=== PATIENT | female | born 1975 | race Caucasian/White ===

== ENCOUNTER 2016-03-21 20:25 | Emergency (ER) | payer MEDICARE, MEDICAID ==
[2016-03-21 20:45] VITALS: TEMP 98.3
[2016-03-21 20:46] VITALS: BMI 35.0
[2016-03-21] MEDS ORDERED: PREDNISONE 20 MG TAB PO ONE (20:58)
[2016-03-21] MEDS ORDERED: DIAZEPAM 5 MG TAB PO ONE (20:58)
[2016-03-21] MEDS ORDERED: HYDROmorphone 1 MG INJECTION IM ONE (20:58)
--- NOTE | 2016-03-21 21:01 | EDPRACDOC ---
- General Information Chief Complaint: Back Pain Stated Complaint: LT HIP PAIN NO INJURY Time Seen by Provider: 03/21/16 20:51 Information Source: Patient Mode Of Arrival: Car Home Medications: Home Medications Hydrochlorothiazide 25 mg PO DAILY 11/17/13 Losartan Potassium [Cozaar] 25 mg PO DAILY 11/17/13 Alprazolam [Xanax] 0.5 mg PO BID PRN 12/28/14 Esomeprazole Magnesium [Nexium] 40 mg PO DAILY 12/28/14 Oxycodone HCl [Roxicodone] 5 - 15 mg PO Q4-6H PRN 04/29/15 Oxymorphone HCl [Opana ER] 10 mg PO BID 07/21/15 Epinephrine [Epipen 2-Jayy] 0.3 mg IM DIR #2 pen.injctr 10/05/15 Duloxetine HCl [Cymbalta] 60 mg PO DAILY 01/16/16 Fluticasone/Vilanterol [Breo Ellipta 100-25 Mcg INH] 1 puff INH BID 01/16/16 Levocetirizine Dihydrochloride [Xyzal] 5 mg PO DAILY 01/16/16 Montelukast Sodium [Singulair] 10 mg PO DAILY 01/16/16 Potassium Chloride [Klor-Con M10] 10 meq PO DAILY 01/16/16 Trazodone HCl [Desyrel] 50 - 100 mg PO QHS 01/16/16 HydrOXYzine HCl (Antihistamine [Atarax] 25 mg PO Q6 PRN #30 tab 02/20/16 Ketoprofen 50 mg PO BID PRN #20 capsule 02/20/16 Diazepam [Valium] 5 mg PO TID #15 tablet 03/21/16 Prednisone [Deltasone, Orasone] 20 mg PO BID #12 tab 03/21/16 Allergies/Adverse Reactions: Allergies Allergy/AdvReac Type Severity Reaction Status Date / Time No Known Allergies Allergy Verified 02/20/16 10:36 - History of Present Illness Onset: SEVERAL DAYS HPI: PT PRESENTS WITH LEFT BUTTOCK THAT RADIATES DOWN HER LEG. DENIES LOSS OF BOWEL OR BLADDER. Pain Location: Reports: Lumbar Pain Radiates To: Reports: Thigh, Buttock, Calf, Foot Pain Caused By: Reports: Spontaneous Circumstances: Reports: Unknown Relevant History: Reports: Chronic back pain Currently ?: No Pain Severity: Reports: Moderate Pain Quality: Reports: Sharp, Stabbing Worsened By: Reports: Breathing, Movement, Twisting Associated Signs and Symptoms: Reports: None ED Past Medical History - History Reviewed Yes Nurses notes reviewed and agree except as marked - Patient Medical History Cardiac History: Reports: Hypertension Respiratory History: Reports: Asthma, COPD GI/ History: Reports: Gastroesophageal Reflux, Diverticulosis Psychological History: Denies: Depression Additional Past Medical History: CHRONIC BACK PAIN - Social Medical History Smoking Status: Heavy tobacco smoker (5 or more cigarettes/day or daily pipe/ cigar) EDM Review of Systems - Review of Systems ROS Negative Except as Marked: Yes All systems reviewed and were negative except as marked - Physical Exam Constitutional: Alert (PT APPEARS UNCOMFORTABLE) Oriented to: Time, Person, Place Last recorded Vital Signs: Last Vital Signs Temp 98.3 F 03/21/16 20:45 Pulse 106 03/21/16 20:45 Resp 18 03/21/16 20:45 BP 158/103 H 03/21/16 20:45 Pulse Ox 96 03/21/16 20:45 Oxygen Pulse Oxygen Saturation 96 O2 Device Oxygen Flow Rate Fraction of Inspired Oxygen ( FIO2) - HEENT Head: Normal ( normocephalic) Eye Exam: Normal (PERRL, EOMI, Sclera white) Oropharynx: Normal (Pharynx:Moist without exudate,Gums-no swelling) Nose: No Symptoms Reported (septum midline) Neck: Normal (FROM, trachea at midline) - Respiratory/Cardiovascular Respiratory: Normal - CTA (BBS clear to auscultation without adventitious sounds ) Cardiovascular: Tachycardia - GI Auscultation: Normal (NABS) Palpation: Normal (Soft,No rebound or guarding, non distended) Tenderness: Non tender Hudson's Sign: Negative Rectal Exam: Deferred - Musculoskeletal Back: Normal (Non-Tender) Extremities: Normal (Normal tone, Pulses 2+ No cyanosis or edema, FROM) - Integumentary Skin: Normal, Warm, Dry Lymphatics: Normal (no adenopathy) - Neurologic Memory Impaired: Normal Motor Function: Normal (Normal tone, Pulses 2+ No cyanosis or edema, FROM) Cranial Nerve: Normal (CN II-X11 intact sensation, strength 5/5) Cerebellar: Normal Mood Description: Normal Perception: Normal ED Back Exam - Neurologic Motor Deficit: None Reflexes: Normal - Musculoskeletal Cervical: Normal Thoracic: Normal Lumbar: Normal Midline: Normal Paraspinous: Tender Straight Leg Raise: Positive Pelvis: Normal - Differential Diagnosis Musculoskeletal pain Decision Time to Discharge: 21:03 - Departure Disposition: Home Condition: Stable Final Diagnosis: Sciatica Qualifiers: Laterality: left Qualified Code(s): M54.32 - Sciatica, left side Instructions: Sciatica (ED), Back Exercises (ED) Education/Counseling Given To: Patient Education/Counseling Given Regarding: Diagnosis, Treatment, Prognosis, Follow Up Referrals: Davis Mata PA [Primary Care Provider] - One Week Prescriptions: Diazepam [Valium] 5 mg PO TID #15 tablet Prednisone [Deltasone, Orasone] 20 mg PO BID #12 tab Additional Instructions: ICE OR HEAT TO THE AREA ~ WHICHEVER FEELS BETTER. FOLLOW UP WITH PCP NEXT WEEK. RETURN TO THE ED FOR WORSENING SYMPTOMS OR CONCERNS
[2016-03-21 21:48] VITALS: BP 146/92; PULSE 101
== END 2016-03-21 21:15 | disposition home or self-care (01) ==
LOC: EDMC 20:25
DX: M54.32 Sciatica, left side (principal); I10 Essential (primary) hypertension; K21.9 Gastro-esophageal reflux disease without esophagitis; J44.9 Chronic obstructive pulmonary disease, unspecified; J45.909 Unspecified asthma, uncomplicated; Z79.899 Other long term (current) drug therapy; F17.200 Nicotine dependence, unspecified, uncomplicated
CPT/HCPCS: 96372; 99283; A9270; J1170; J3490

== ENCOUNTER 2016-03-30 20:48 | Emergency (ER) | payer MEDICARE, MEDICAID ==
[2016-03-30 20:59] VITALS: BMI 34.9
[2016-03-30 21:11] LABS: AUTOMATED BASOPHIL 0.7 % (0-2); AUTOMATED EOSINOPHIL 0.7 % (0-5); AUTOMATED LYMPH 25.1 % (17-44); AUTOMATED MONOCYTE 6.9 % (3-10); AUTOMATED NEUTROPHIL 66.6 % (45-76); MPV 8.3 fL (7.4-10.4)
[2016-03-30 21:25] LABS: PARTIAL THROMB. TIME 24.4 SEC (22-35); PT-INR 0.9
[2016-03-30 21:31] LABS: BLOOD UREA NITROGEN 17 MG/DL (7-17); CALCIUM 8.9 MG/DL (8.4-10.2); CALCULATED OSMOLALITY 272 MOs/Kg (270-290); CHLORIDE 105 mEq/L (98-107); GLUCOSE 80 MG/DL (70-99); SODIUM LEVEL 141 mEq/L (137-146); TOTAL PROTEIN 7.8 G/DL (6.3-8.2)
--- NOTE | 2016-03-30 22:19 | EDPRACDOC ---
- General Information Chief Complaint: Chest Pain Stated Complaint: CHEST PAIN Time Seen by Provider: 03/30/16 22:10 Information Source: Patient Mode of Arrival: Car Home Medications: Home Medications Hydrochlorothiazide 25 mg PO DAILY 11/17/13 Losartan Potassium [Cozaar] 25 mg PO DAILY 11/17/13 Alprazolam [Xanax] 0.5 mg PO BID PRN 12/28/14 Esomeprazole Magnesium [Nexium] 40 mg PO DAILY 12/28/14 Oxycodone HCl [Roxicodone] 5 mg PO QID PRN 04/29/15 Oxymorphone HCl [Opana ER] 10 mg PO BID 07/21/15 Epinephrine [Epipen 2-Jayy] 0.3 mg IM DIR #2 pen.injctr 10/05/15 Duloxetine HCl [Cymbalta] 60 mg PO DAILY 01/16/16 Fluticasone/Vilanterol [Breo Ellipta 100-25 Mcg INH] 1 puff INH BID 01/16/16 Levocetirizine Dihydrochloride [Xyzal] 5 mg PO DAILY 01/16/16 Montelukast Sodium [Singulair] 10 mg PO DAILY 01/16/16 Potassium Chloride [Klor-Con M10] 10 meq PO DAILY 01/16/16 Trazodone HCl [Desyrel] 50 - 100 mg PO QHS 01/16/16 Aspirin [Ecotrin] 81 mg PO DAILY #30 tablet. 03/30/16 Metoprolol Tartrate 25 mg PO BID #60 tablet 03/30/16 Tizanidine HCl 4 mg PO TID 03/30/16 Allergies/Adverse Reactions: Allergies Allergy/AdvReac Type Severity Reaction Status Date / Time No Known Allergies Allergy Verified 03/21/16 21:42 - History of Present Illness Onset: 2 hours Chest Pain Location: Reports: Left Chest Pain Radiation: Reports: None Symptoms Occur: Reports: Suddenly, At Rest. Denies: With light exertion, With heavy exertion Cardiac Risk Factors: Denies: Smoker, Family History Cardiac History of: Reports: Similar Pain in Past, Stress Test. Denies: Cardiac Cath PE Risk Factors: Reports: None Medications within 24 Hours: Reports: Nitro Prehospital Care: Reports: [facility] NTG (PT OWN) Pain Came On: Reports: Suddenly Pain Status: Resolved Pain Description: Reports: Sharp, Stabbing, Other (LASTED APPROX 30 MIN, RESOLVED WITH NTG) Pain Worsens With: Reports: Nothing Pain Improves With: Reports: Nitroglycerin Associated Signs and Symptoms: Reports: SOB (HURT TO TAKE DEEP BREATH). Denies : Palpitations, Diaphoretic, Abdominal Pain, Nausea, Vomiting, Calf Pain or Swelling, Chest Rash ED Past Medical History - History Reviewed Yes Nurses notes reviewed and agree except as marked - Patient Medical History Cardiac History: Reports: Hypertension Respiratory History: Reports: Asthma, COPD GI/ History: Reports: Gastroesophageal Reflux, Diverticulosis Psychological History: Reports: Anxiety. Denies: Depression Systemic History: Denies: Cancer Additional Past Medical History: CHRONIC BACK PAIN Surgical History: Denies: Hysterectomy - Social Medical History Smoking Status: Former smoker ETOH: None Substance Abuse: None Lives With: Dad, Family EDM Review of Systems - Review of Systems ROS Negative Except as Marked: Yes All systems reviewed and were negative except as marked - Physical Exam Constitutional: Alert (Awake), No apparent distress Oriented to: Time, Person, Place Last recorded Vital Signs: Last Vital Signs Temp 97.4 F L 03/30/16 20:55 Pulse 101 03/30/16 20:55 Resp 20 03/30/16 20:55 BP 163/90 03/30/16 20:55 Pulse Ox 98 03/30/16 20:55 Oxygen Pulse Oxygen Saturation 98 O2 Device Room Air Oxygen Flow Rate Fraction of Inspired Oxygen ( FIO2) - HEENT Head: Normal ( normocephalic) Eye Exam: Normal (PERRL, EOMI, Sclera white) Oropharynx: Normal (Pharynx:Moist without exudate,Gums-no swelling) Tympanic Membrane: Normal ENT EAC: Normal TMJ: Normal Nose: No Symptoms Reported (septum midline) Neck: Normal (FROM, trachea at midline) - Respiratory/Cardiovascular Respiratory: Normal - CTA (BBS clear to auscultation without adventitious sounds ) Cardiovascular: Normal (RRR without murmur, gallop or rub) - GI Auscultation: Normal (NABS) Palpation: Normal (Soft,No rebound or guarding, non distended) Tenderness: Non tender Hudson's Sign: Negative - Musculoskeletal Back: Normal (Non-Tender) Extremities: Normal (Normal tone, Pulses 2+ No cyanosis or edema, FROM) - Integumentary Skin: Normal, Warm, Dry Lymphatics: Normal (no adenopathy) - Neurologic Memory Impaired: Normal Motor Function: Normal (Normal tone, Pulses 2+ No cyanosis or edema, FROM) Cranial Nerve: Normal (CN II-X11 intact sensation, strength 5/5) Cerebellar: Normal Mood Description: Normal Perception: Normal ED Chest Pain Exam - Respiratory/Cardiovascular Respiratory: Normal - CTA (clear to auscultation without adventitious sounds) Cardiovascular/Chest: Normal (RRR without murmur, gallop or rub) Radial Pulse: Normal Femoral Pulse: Normal Pedal Pulse: Normal Carotid Arteries: Normal Edema: 5 Chest Palpation: Normal (No chest tenderness) - Action ASA given in the ED: Yes - Results 03/30/16 20:56 03/30/16 20:56 WBC 11.4 xk/uL (3.8-10.8) H 03/30/16 20:56 RBC 4.93 xM/uL (4.20-5.40) 03/30/16 20:56 Hgb 14.7 g/dL (12.0-16.0) 03/30/16 20:56 Hct 43.0 % (36-47) 03/30/16 20:56 MCV 87 fL (81-99) 03/30/16 20:56 MCH 29.7 pg (27-32) 03/30/16 20:56 MCHC 34.1 g/dl (33-36) 03/30/16 20:56 RDW 14.2 % (11.5-14.5) 03/30/16 20:56 Plt Count 224 xk/uL (130-400) 03/30/16 20:56 MPV 8.3 fL (7.4-10.4) 03/30/16 20:56 Neut % (Auto) 66.6 % (45-76) 03/30/16 20:56 Lymph % (Auto) 25.1 % (17-44) 03/30/16 20:56 Haines % (Auto) 6.9 % (3-10) 03/30/16 20:56 Eos % (Auto) 0.7 % (0-5) 03/30/16 20:56 Baso % (Auto) 0.7 % (0-2) 03/30/16 20:56 Absolute Neuts (auto) 7.52 xk/uL (1.7-8.2) 03/30/16 20:56 Absolute Lymphs (auto) 2.85 xk/uL (0.65-4.75) 03/30/16 20:56 PT 9.7 SEC (9.2-11.2) 03/30/16 20:56 INR 0.9 03/30/16 20:56 APTT 24.4 SEC (22-35) 03/30/16 20:56 Sodium 141 mEq/L (137-146) 03/30/16 20:56 Potassium 4.3 mEq/L (3.5-5.1) 03/30/16 20:56 Chloride 105 mEq/L (98-107) 03/30/16 20:56 Carbon Dioxide 25 mMOL/L (22-33) 03/30/16 20:56 Anion Gap 15 mEq/L (8-16) 03/30/16 20:56 BUN 17 MG/DL (7-17) 03/30/16 20:56 Creatinine 0.80 MG/DL (0.52-1.04) 03/30/16 20:56 Estimated GFR (MDRD) > 60 mL/min (>=60) 03/30/16 20:56 Glucose 80 MG/DL (70-99) 03/30/16 20:56 Calculated Osmolality 272 MOs/Kg (270-290) 03/30/16 20:56 Calcium 8.9 MG/DL (8.4-10.2) 03/30/16 20:56 Total Bilirubin 0.6 MG/DL (0.2-1.3) 03/30/16 20:56 AST 19 IU/L (14-36) 03/30/16 20:56 ALT 23 IU/L (9-52) 03/30/16 20:56 Alkaline Phosphatase 85 IU/L (38-126) 03/30/16 20:56 Troponin I < 0.01 ng/mL (<.04) 03/30/16 20:56 Jwd-G-Ysyhjqmihke Pept 47 pg/mL (0-450) 03/30/16 20:56 Total Protein 7.8 G/DL (6.3-8.2) 03/30/16 20:56 Albumin 4.3 G/DL (3.5-5.0) 03/30/16 20:56 Lab Results 03/30/16 03/30/16 03/30/16 20:56 20:56 20:56 WBC 11.4 H RBC 4.93 Hgb 14.7 Hct 43.0 MCV 87 MCH 29.7 MCHC 34.1 RDW 14.2 Plt Count 224 MPV 8.3 Neut % (Auto) 66.6 Lymph % (Auto) 25.1 Haines % (Auto) 6.9 Eos % (Auto) 0.7 Baso % (Auto) 0.7 Absolute Neuts (auto) 7.52 Absolute Lymphs (auto) 2.85 PT 9.7 INR 0.9 APTT 24.4 Sodium 141 Potassium 4.3 Chloride 105 Carbon Dioxide 25 Anion Gap 15 BUN 17 Creatinine 0.80 Estimated GFR (MDRD) > 60 Glucose 80 Calculated Osmolality 272 Calcium 8.9 Total Bilirubin 0.6 AST 19 ALT 23 Alkaline Phosphatase 85 Troponin I < 0.01 Huu-H-Ibsttycdwmj Pept 47 Total Protein 7.8 Albumin 4.3 Laboratory Results - last 24 hr 03/30/16 03/30/16 03/30/16 20:56 20:56 20:56 WBC 11.4 H RBC 4.93 Hgb 14.7 Hct 43.0 MCV 87 MCH 29.7 MCHC 34.1 RDW 14.2 Plt Count 224 MPV 8.3 Neut % (Auto) 66.6 Lymph % (Auto) 25.1 Haines % (Auto) 6.9 Eos % (Auto) 0.7 Baso % (Auto) 0.7 Absolute Neuts (auto) 7.52 Absolute Lymphs (auto) 2.85 PT 9.7 INR 0.9 APTT 24.4 Sodium 141 Potassium 4.3 Chloride 105 Carbon Dioxide 25 Anion Gap 15 BUN 17 Creatinine 0.80 Estimated GFR (MDRD) > 60 Glucose 80 Calculated Osmolality 272 Calcium 8.9 Total Bilirubin 0.6 AST 19 ALT 23 Alkaline Phosphatase 85 Troponin I < 0.01 Wsx-I-Xhxzhrfueyl Pept 47 Total Protein 7.8 Albumin 4.3 Laboratory Results 03/30/16 20:56 03/30/16 20:56 - EKG EKG #1 EKG Time: 20:51 -: Yes EKG interpreted by me Rate: bpm: 103 E[place]ile: Normal Rhythm: ST Block: None Hypertrophy: None ST: Normal - Diagnostic Imaging Chest Image interpreted by: Radiologist Patient Name: NAIN SCHULTZ LOC: ED : 1975 AGE: 40 Order Date:03/30/16 Date of Service: Report # [id number] Ord Physician: Alan Dumont DO Exam # [id number] Emergency Physician: Dominique Perales MD Exam(s): [id number] RAD/DG CHEST PORTABLE CLINICAL DATA: Acute onset of shortness of breath and substernal chest pain. Initial encounter. EXAM: PORTABLE CHEST 1 VIEW COMPARISON: Chest radiograph performed 07/20/2015, and CTA of the chest performed 07/21/2015 FINDINGS: The lungs are well-aerated and clear. There is no evidence of focal opacification, pleural effusion or pneumothorax. The cardiomediastinal silhouette is within normal limits. No acute osseous abnormalities are seen. IMPRESSION: No acute cardiopulmonary process seen. Electronically Signed By: Thomas Wilson M.D. On: 03/30/2016 22:21 Electronically Signed By: Thomas Wilson MD Electronically Signed Date/Time: [id number] Dictate Date/Time: 03/30/162219 Technologist: Yusuf Orozco Transcribed By: Nathan Transcribed Date/Time: 03/30/16 222 - Additional Information HEART SCORE = 1, DISCHARGE / OUTPATIENT MANAGEMENT WARRANTED. - Departure Disposition: Home Condition: Stable Final Diagnosis: Atypical chest pain Instructions: Chest Pain (ED), Chest Wall Pain Education/Counseling Given To: Patient, Family Member Education/Counseling Given Regarding: Diagnosis, Treatment, Prognosis Referrals: Davis Mata PA [Primary Care Provider] - One Week Beni Tatum MD [Staff Physician] - 1-2 days Prescriptions: Aspirin [Ecotrin] 81 mg PO DAILY #30 tablet. Metoprolol Tartrate 25 mg PO BID #60 tablet
[2016-03-30] MEDS ORDERED: ASPIRIN 325 MG TAB PO ONE (22:21)
--- NOTE | 2016-03-30 22:24 | DIRPT ---
CLINICAL DATA: Acute onset of shortness of breath and substernal chest pain. Initial encounter. EXAM: PORTABLE CHEST 1 VIEW COMPARISON: Chest radiograph performed 07/20/2015, and CTA of the chest performed 07/21/2015 FINDINGS: The lungs are well-aerated and clear. There is no evidence of focal opacification, pleural effusion or pneumothorax. The cardiomediastinal silhouette is within normal limits. No acute osseous abnormalities are seen. IMPRESSION: No acute cardiopulmonary process seen. Electronically Signed By: Thomas Wilson M.D. On: 03/30/2016 22:21
[2016-03-31 01:27] VITALS: BP 111/79; PULSE 66; TEMP 97.5
== END 2016-03-31 01:26 | disposition home or self-care (01) ==
LOC: ED 20:48
DX: R07.89 Other chest pain (principal)
CPT/HCPCS: 36415; 71010; 80053; 83880; 84484; 85025; 85379; 85610; 85730; 93005; 99284; A9270; J3490